=== PATIENT | male | born 1965 | race African-American/Black ===

== ENCOUNTER 2019-12-06 10:48 | Inpatient (IN) | payer OTHER ==
--- NOTE | 2019-12-06 13:45 | BHS.RME ---
Substance Use & Tx History - Substance Use History Alcohol Substance amount: 2 of 6 packs of 12 0zs of beer Frequency of use: Daily Substance route: Oral Date of Last Use: 12/06/19 - Last Treatment Date of last treatment: 10/04/2014 to 11/01/14 Where was last treatment: Rehab Physical/Psych/Mental Status - Behavior Eye Contact: Normal - Cooperativeness Cooperativeness: Cooperative - Thinking Thought Processes: Logical Thought content: Future oriented - Physical Health Problems Is patient presently having any pain?: No Does patient presently have any injuries (include location): No Does patient currently have a fever: No CIWA Nausea/Vomitin Muscle Tremors: 3 Anxiety: 3 Agitation: 3 Paroxysmal Sweats: 1-Minimal Palms Moist Orientation: 0-Oriented Tacttile Disturbances: 1-Very Mild Itch/Numbness Auditory Disturbances: 0-None Visual Disturbances: 0-None Headache: 2-Mild CIWA-Ar Total Score: 15
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
[2019-12-06] MEDS ORDERED: ACETAMINOPHEN 325 MG TABLET (FP) PO PRN ×2 (14:18)
[2019-12-06] MEDS ORDERED: BISMUTH SUBSALICYLATE 524 MG/30 ML UD PO PRN (14:18)
[2019-12-06] MEDS ORDERED: ONDANSETRON *ODT* 4 MG TABLET SL ONE (14:18)
[2019-12-06] MEDS ORDERED: MAGNESIUM HYDROX 2400MG/30ML ORAL SUSPENSION 30 ML CUP PO PRN (14:18)
[2019-12-06] MEDS ORDERED: IBUPROFEN 400 MG TABLET (FP) PO PRN (14:18)
[2019-12-06] MEDS ORDERED: METHOCARBAMOL 500 MG TABLET PO PRN (14:18)
[2019-12-06] MEDS ORDERED: MENTHOL/PHENOL 1 EACH UD MM PRN (14:18)
[2019-12-06] MEDS ORDERED: MAG HYDROX/AL HYDROX/SIMETH 30 ML UNIT-DOSE CUP PO PRN (14:18)
[2019-12-06] MEDS ORDERED: chlordiazePOXIDE HCL 25 MG CAPSULE PO PRN (14:18)
[2019-12-06] MEDS ORDERED: MAGNESIUM CITRATE 300 ML BOTTLE PO PRN (14:18)
[2019-12-06 15:48] VITALS: BMI 21.4
[2019-12-06] MEDS ORDERED: TUBERCULIN PPD 5 TU/0.1ML VIAL ID ONE (16:58)
[2019-12-06] MEDS: hydrOXYzine PAMOATE 25 MG CAPSULE (FP) PO SCH ×2 (17:00→22:32)
[2019-12-06] MEDS: chlordiazePOXIDE HCL 25 MG CAPSULE PO SCH ×2 (17:00→22:31)
[2019-12-06] MEDS: THIAMINE HCL 100 MG TABLET (FP) PO SCH (22:31)
[2019-12-06] MEDS: MELATONIN 5 MG TABLETS PO SCH (22:31)
[2019-12-07] MEDS: chlordiazePOXIDE HCL 25 MG CAPSULE PO SCH ×4 (06:40→22:34)
[2019-12-07] MEDS: hydrOXYzine PAMOATE 25 MG CAPSULE (FP) PO SCH ×5 (06:40→22:34)
--- NOTE | 2019-12-07 10:27 | EKG ---
Test Reason : Blood Pressure : / mmHG Vent. Rate : 072 BPM Atrial Rate : 072 BPM P-R Int : 150 ms QRS Dur : 088 ms QT Int : 424 ms P-R-T Axes : 065 -39 062 degrees QTc Int : 464 ms UNDETERMINED RHYTHM LEFT AXIS DEVIATION ABNORMAL ECG NO PREVIOUS ECGS AVAILABLE Confirmed by Lo Brewster ([id number]) on 12/07/2019 10:26:53 AM Referred By: Confirmed By:Lo Brewster
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
[2019-12-07] MEDS: PRENATAL VITAMINS W/ FOLIC ACID TABLET (FP) PO SCH (10:53)
[2019-12-07 11:07] LABS: HEMATOCRIT 30.8 % (35.4-49); HEMOGLOBIN 9.9 GM/dL (11.7-16.9); MCH 26.9 pg (25.7-33.7); MCHC 32.2 g/dl (32.0-35.9); MEAN CELL VOLUME 83.6 fl (80-96); MEAN PLT VOLUME 8.5 fl (7.5-11.1); PLATELET COUNT 242 K/MM3 (134-434); RBC 3.69 M/mm3 (4.00-5.60); RDW 21.1 % (11.9-15.9); WHITE BLOOD COUNT 2.8 K/mm3 (4.0-10.0)
[2019-12-07 11:15] LABS: ALBUMIN 3.5 g/dl (3.4-5.0); BILIRUBIN,TOTAL 0.4 mg/dL (0.2-1); BLOOD UREA NITROGEN 8.8 mg/dL (7-18); CALCIUM 8.7 mg/dL (8.5-10.1); CREATININE 1.1 mg/dL (0.55-1.3); POTASSIUM 4.4 mmol/L (3.5-5.1)
--- NOTE | 2019-12-07 12:03 | PN ---
[facility] CIWA - CIWA Score Nausea/Vomitin-No Nausea/No Vomiting (Diarrhea) Muscle Tremors: 4-Moderate,w/Arms Extend Anxiety: 4-Mod. Anxious/Guarded Agitation: 3 Paroxysmal Sweats: No Perspiration Orientation: 0-Oriented Tacttile Disturbances: 0-None Auditory Disturbances: 0-None Visual Disturbances: 0-None Headache: 0-None Present CIWA-Ar Total Score: 11 BHS Progress Note (SOAP) Subjective: Pt is a 54 y/o male admitted to detox for withdrawal sx. c/o Diarrhea x 3 this morning chills sweats tremors intermittent sleep Objective: 12/07/19 12:02 Vital Signs - 24 hr 12/06/19 12/06/19 12/06/19 15:44 16:55 21:07 Temperature 97.3 F L 97.5 F L 98.7 F Pulse Rate 85 79 88 Respiratory 20 18 16 Rate Blood Pressure 108/64 128/81 138/86 O2 Sat by Pulse 96 95 Oximetry (%) 12/07/19 06:56 Temperature 98.3 F Pulse Rate 886 H Respiratory 16 Rate Blood Pressure 129/78 O2 Sat by Pulse 95 Oximetry (%) Laboratory Tests 12/07/19 12/07/19 12/07/19 08:05 08:05 08:05 WBC 2.8 L RBC 3.69 L Hgb 9.9 L Hct 30.8 L D MCV 83.6 MCH 26.9 D MCHC 32.2 RDW 21.1 H Plt Count 242 MPV 8.5 D Sodium 143 Potassium 4.4 Chloride 108 H Carbon Dioxide 30 Anion Gap 5 L BUN 8.8 Creatinine 1.1 Est GFR (CKD-EPI)AfAm 87.74 Est GFR (CKD-EPI)NonAf 75.70 Random Glucose 132 H Calcium 8.7 Total Bilirubin 0.4 AST 81 H ALT 37 Alkaline Phosphatase 165 H Total Protein 8.0 Albumin 3.5 Syphilis Serology Non-reactive Low H/H 9.9/30.8 covid-19 pending alert o x 3 nad pt seen in bed at rounds, communicated needs coherently. Assessment: 12/07/19 12:02 withdrawal sx Anemia Plan: cont detox increase po fluids as tolerated maintain safety imodium prn Diet management if imodium not effective. Feosol 325 mg po TIDCM
[2019-12-07] MEDS: FERROUS SO4 325 MG TABLET (FP) PO SCH (17:45)
[2019-12-07 21:12] LABS: URINE APPEARANCE CLEAR; URINE BILIRUBIN NEGATIVE (NEGATIVE); URINE COLOR YELLOW; URINE GLUCOSE (UA) NEGATIVE (NEGATIVE); URINE KETONE NEGATIVE (NEGATIVE); URINE LEUK ESTERASE NEGATIVE (NEGATIVE); URINE NITRITE NEGATIVE (NEGATIVE); URINE PROTEIN NEGATIVE (NEGATIVE); URINE UROBILINOGEN 0.2 mg/dL (0.2-1.0)
[2019-12-07] MEDS: THIAMINE HCL 100 MG TABLET (FP) PO SCH (22:34)
[2019-12-07] MEDS: MELATONIN 5 MG TABLETS PO SCH (22:34)
[2019-12-07] MEDS: QUEtiapine FUMARATE 100 MG TABLET (FP) PO SCH (22:35)
[2019-12-08] MEDS: hydrOXYzine PAMOATE 25 MG CAPSULE (FP) PO SCH ×5 (06:16→22:10)
[2019-12-08] MEDS: chlordiazePOXIDE HCL 25 MG CAPSULE PO SCH ×4 (06:16→22:10)
[2019-12-08] MEDS: FERROUS SO4 325 MG TABLET (FP) PO SCH ×3 (07:22→17:44)
[2019-12-08] MEDS: PRENATAL VITAMINS W/ FOLIC ACID TABLET (FP) PO SCH (11:10)
--- NOTE | 2019-12-08 13:19 | PN ---
S CIWA - CIWA Score Nausea/Vomitin-No Nausea/No Vomiting Muscle Tremors: 3 Anxiety: 5 Agitation: 0-Normal Activity Paroxysmal Sweats: 2 Orientation: 0-Oriented Tacttile Disturbances: 0-None Auditory Disturbances: 0-None Visual Disturbances: 0-None Headache: 0-None Present CIWA-Ar Total Score: 10 BHS Progress Note (SOAP) Subjective: pt c/o anxiety cold sweats tremors Objective: 12/08/19 13:16 Vital Signs - 24 hr 12/07/19 12/07/19 12/07/19 13:18 17:02 20:55 Temperature 97.8 F 97.7 F 97.7 F Pulse Rate 72 67 65 Respiratory 16 16 16 Rate Blood Pressure 121/74 135/75 162/86 O2 Sat by Pulse 96 98 Oximetry (%) 12/08/19 05:51 Temperature 97.5 F L Pulse Rate 56 L Respiratory 16 Rate Blood Pressure 144/92 O2 Sat by Pulse 98 Oximetry (%) Laboratory Tests 12/06/19 12/07/19 12/07/19 16:00 08:05 08:05 WBC 2.8 L RBC 3.69 L Hgb 9.9 L Hct 30.8 L D MCV 83.6 MCH 26.9 D MCHC 32.2 RDW 21.1 H Plt Count 242 MPV 8.5 D Sodium Potassium Chloride Carbon Dioxide Anion Gap BUN Creatinine Est GFR (CKD-EPI)AfAm Est GFR (CKD-EPI)NonAf Random Glucose Calcium Total Bilirubin AST ALT Alkaline Phosphatase Total Protein Albumin Urine Color Urine Appearance Urine pH Ur Specific [place] Urine Protein Urine Glucose (UA) Urine Ketones Urine Blood Urine Nitrite Urine Bilirubin Urine Urobilinogen Ur Leukocyte Esterase Syphilis Serology Non-reactive COVID-19 (CAM) Not detected 12/07/19 12/07/19 08:05 19:02 WBC RBC Hgb Hct MCV MCH MCHC RDW Plt Count MPV Sodium 143 Potassium 4.4 Chloride 108 H Carbon Dioxide 30 Anion Gap 5 L BUN 8.8 Creatinine 1.1 Est GFR (CKD-EPI)AfAm 87.74 Est GFR (CKD-EPI)NonAf 75.70 Random Glucose 132 H Calcium 8.7 Total Bilirubin 0.4 AST 81 H ALT 37 Alkaline Phosphatase 165 H Total Protein 8.0 Albumin 3.5 Urine Color Yellow Urine Appearance Clear Urine pH 7.0 D Ur Specific [place] 1.005 L Urine Protein Negative Urine Glucose (UA) Negative Urine Ketones Negative Urine Blood Negative Urine Nitrite Negative Urine Bilirubin Negative Urine Urobilinogen 0.2 Ur Leukocyte Esterase Negative Syphilis Serology COVID-19 (CAM) covid-19 not detected alert o x 3 nad oob ambulating with steady gait Assessment: 12/08/19 13:19 withdrawal sx Plan: cont detox increase po fluids maintain safety repeat CBC and CMP in the morning.
[2019-12-08] MEDS: THIAMINE HCL 100 MG TABLET (FP) PO SCH (22:10)
[2019-12-08] MEDS: MELATONIN 5 MG TABLETS PO SCH (22:10)
[2019-12-08] MEDS: QUEtiapine FUMARATE 100 MG TABLET (FP) PO SCH (22:10)
[2019-12-09] MEDS ORDERED: chlordiazePOXIDE HCL 10 MG CAPSULE PO PRN
[2019-12-09] MEDS: chlordiazePOXIDE HCL 10 MG CAPSULE PO SCH ×4 (06:58→22:31)
[2019-12-09] MEDS: hydrOXYzine PAMOATE 25 MG CAPSULE (FP) PO SCH ×5 (06:58→22:31)
[2019-12-09] MEDS: FERROUS SO4 325 MG TABLET (FP) PO SCH ×3 (09:00→17:45)
[2019-12-09] MEDS: PRENATAL VITAMINS W/ FOLIC ACID TABLET (FP) PO SCH (10:03)
[2019-12-09 12:00] LABS: ALBUMIN 3.7 g/dl (3.4-5.0); BLOOD UREA NITROGEN 9.7 mg/dL (7-18); CALCIUM 9.9 mg/dL (8.5-10.1); POTASSIUM 4.1 mmol/L (3.5-5.1); TOT PROT 8.4 g/dl (6.4-8.2)
[2019-12-09 12:02] LABS: BILIRUBIN,TOTAL 0.3 mg/dL (0.2-1)
[2019-12-09 12:28] LABS: HEMATOCRIT 32.3 % (35.4-49); HEMOGLOBIN 10.4 GM/dL (11.7-16.9); MCH 27.1 pg (25.7-33.7); MCHC 32.2 g/dl (32.0-35.9); MEAN CELL VOLUME 84.1 fl (80-96); PLATELET COUNT 214 K/MM3 (134-434); RBC 3.85 M/mm3 (4.00-5.60); RDW 20.4 % (11.9-15.9); WHITE BLOOD COUNT 3.6 K/mm3 (4.0-10.0)
--- NOTE | 2019-12-09 14:40 | PN ---
S CIWA - CIWA Score Nausea/Vomitin-No Nausea/No Vomiting Muscle Tremors: 4-Moderate,w/Arms Extend Anxiety: 3 Agitation: 2 Paroxysmal Sweats: No Perspiration Orientation: 0-Oriented Tacttile Disturbances: 0-None Auditory Disturbances: 0-None Visual Disturbances: 0-None Headache: 0-None Present CIWA-Ar Total Score: 9 BHS Progress Note (SOAP) Subjective: Pt reports he has an appointment with his primary care doctor, Dr. Nurys rodriguez(?spelling) at [facility] on 12/11/19 @ 11 A.M. pt c/o anxiety slight tremors "my bones hurt" Objective: 12/09/19 14:41 Vital Signs - 24 hr 12/08/19 12/08/19 12/09/19 18:46 20:35 06:01 Temperature 98.2 F 98.4 F 97.5 F L Pulse Rate 68 59 L 49 L Respiratory 18 18 18 Rate Blood Pressure 153/91 151/88 139/87 O2 Sat by Pulse 96 97 Oximetry (%) Laboratory Tests 12/06/19 12/07/19 12/07/19 16:00 08:05 08:05 WBC 2.8 L RBC 3.69 L Hgb 9.9 L Hct 30.8 L D MCV 83.6 MCH 26.9 D MCHC 32.2 RDW 21.1 H Plt Count 242 MPV 8.5 D Sodium Potassium Chloride Carbon Dioxide Anion Gap BUN Creatinine Est GFR (CKD-EPI)AfAm Est GFR (CKD-EPI)NonAf Random Glucose Calcium Total Bilirubin AST ALT Alkaline Phosphatase Total Protein Albumin Urine Color Urine Appearance Urine pH Ur Specific [place] Urine Protein Urine Glucose (UA) Urine Ketones Urine Blood Urine Nitrite Urine Bilirubin Urine Urobilinogen Ur Leukocyte Esterase Syphilis Serology Non-reactive COVID-19 (CAM) Not detected 12/07/19 12/07/19 12/09/19 08:05 19:02 08:00 WBC 3.6 L RBC 3.85 L Hgb 10.4 L Hct 32.3 L MCV 84.1 MCH 27.1 MCHC 32.2 RDW 20.4 H Plt Count 214 MPV 9.0 Sodium 143 Potassium 4.4 Chloride 108 H Carbon Dioxide 30 Anion Gap 5 L BUN 8.8 Creatinine 1.1 Est GFR (CKD-EPI)AfAm 87.74 Est GFR (CKD-EPI)NonAf 75.70 Random Glucose 132 H Calcium 8.7 Total Bilirubin 0.4 AST 81 H ALT 37 Alkaline Phosphatase 165 H Total Protein 8.0 Albumin 3.5 Urine Color Yellow Urine Appearance Clear Urine pH 7.0 D Ur Specific [place] 1.005 L Urine Protein Negative Urine Glucose (UA) Negative Urine Ketones Negative Urine Blood Negative Urine Nitrite Negative Urine Bilirubin Negative Urine Urobilinogen 0.2 Ur Leukocyte Esterase Negative Syphilis Serology COVID-19 (CAM) 12/09/19 08:00 WBC RBC Hgb Hct MCV MCH MCHC RDW Plt Count MPV Sodium 140 Potassium 4.1 Chloride 107 Carbon Dioxide 28 Anion Gap 5 L BUN 9.7 Creatinine 1.0 Est GFR (CKD-EPI)AfAm 98.46 Est GFR (CKD-EPI)NonAf 84.95 Random Glucose 92 Calcium 9.9 Total Bilirubin 0.3 AST 82 H ALT 40 Alkaline Phosphatase 154 H Total Protein 8.4 H Albumin 3.7 Urine Color Urine Appearance Urine pH Ur Specific [place] Urine Protein Urine Glucose (UA) Urine Ketones Urine Blood Urine Nitrite Urine Bilirubin Urine Urobilinogen Ur Leukocyte Esterase Syphilis Serology COVID-19 (CAM) repeat labs slightly improved alert o x 3 nad sitting on his bed during rounds and communicated coherently. Assessment: 12/09/19 14:42 withdrawal sx Plan: cont detox increase po fluids maintain safety Follow up with primary care at [facility], [address] [place] [address] as scheduled.
[2019-12-09] MEDS: amLODIPine BESYLATE 5 MG TABLET (FP) PO SCH (15:44)
[2019-12-09] MEDS: MELATONIN 5 MG TABLETS PO SCH (22:31)
[2019-12-09] MEDS: THIAMINE HCL 100 MG TABLET (FP) PO SCH (22:31)
[2019-12-09] MEDS: QUEtiapine FUMARATE 100 MG TABLET (FP) PO SCH (22:31)
[2019-12-10] MEDS: chlordiazePOXIDE HCL 10 MG CAPSULE PO SCH ×2 (06:47→17:58)
[2019-12-10] MEDS: hydrOXYzine PAMOATE 25 MG CAPSULE (FP) PO SCH ×5 (06:47→21:44)
[2019-12-10] MEDS: FERROUS SO4 325 MG TABLET (FP) PO SCH ×3 (07:29→17:58)
[2019-12-10] MEDS: amLODIPine BESYLATE 5 MG TABLET (FP) PO SCH (10:53)
[2019-12-10] MEDS: PRENATAL VITAMINS W/ FOLIC ACID TABLET (FP) PO SCH (10:53)
--- NOTE | 2019-12-10 17:21 | PN ---
S CIWA - CIWA Score Nausea/Vomitin-No Nausea/No Vomiting Muscle Tremors: 2 Anxiety: 3 Agitation: 0-Normal Activity Paroxysmal Sweats: No Perspiration Orientation: 0-Oriented Tacttile Disturbances: 0-None Auditory Disturbances: 0-None Visual Disturbances: 0-None Headache: 0-None Present CIWA-Ar Total Score: 5 BHS Progress Note (SOAP) Subjective: c/o slight anxiety sweats Objective: 12/10/19 17:19 Vital Signs - 24 hr 12/09/19 12/09/19 12/10/19 20:14 23:19 06:11 Temperature 98.0 F 98.0 F Pulse Rate 60 63 94 H Respiratory 16 18 Rate Blood Pressure 151/83 128/83 115/67 O2 Sat by Pulse 97 97 Oximetry (%) Laboratory Tests 12/06/19 12/07/19 12/07/19 16:00 08:05 08:05 WBC 2.8 L RBC 3.69 L Hgb 9.9 L Hct 30.8 L D MCV 83.6 MCH 26.9 D MCHC 32.2 RDW 21.1 H Plt Count 242 MPV 8.5 D Sodium Potassium Chloride Carbon Dioxide Anion Gap BUN Creatinine Est GFR (CKD-EPI)AfAm Est GFR (CKD-EPI)NonAf Random Glucose Calcium Total Bilirubin AST ALT Alkaline Phosphatase Total Protein Albumin Urine Color Urine Appearance Urine pH Ur Specific [place] Urine Protein Urine Glucose (UA) Urine Ketones Urine Blood Urine Nitrite Urine Bilirubin Urine Urobilinogen Ur Leukocyte Esterase Syphilis Serology Non-reactive COVID-19 (CAM) Not detected 12/07/19 12/07/19 12/09/19 08:05 19:02 08:00 WBC 3.6 L RBC 3.85 L Hgb 10.4 L Hct 32.3 L MCV 84.1 MCH 27.1 MCHC 32.2 RDW 20.4 H Plt Count 214 MPV 9.0 Sodium 143 Potassium 4.4 Chloride 108 H Carbon Dioxide 30 Anion Gap 5 L BUN 8.8 Creatinine 1.1 Est GFR (CKD-EPI)AfAm 87.74 Est GFR (CKD-EPI)NonAf 75.70 Random Glucose 132 H Calcium 8.7 Total Bilirubin 0.4 AST 81 H ALT 37 Alkaline Phosphatase 165 H Total Protein 8.0 Albumin 3.5 Urine Color Yellow Urine Appearance Clear Urine pH 7.0 D Ur Specific [place] 1.005 L Urine Protein Negative Urine Glucose (UA) Negative Urine Ketones Negative Urine Blood Negative Urine Nitrite Negative Urine Bilirubin Negative Urine Urobilinogen 0.2 Ur Leukocyte Esterase Negative Syphilis Serology COVID-19 (CAM) 12/09/19 08:00 WBC RBC Hgb Hct MCV MCH MCHC RDW Plt Count MPV Sodium 140 Potassium 4.1 Chloride 107 Carbon Dioxide 28 Anion Gap 5 L BUN 9.7 Creatinine 1.0 Est GFR (CKD-EPI)AfAm 98.46 Est GFR (CKD-EPI)NonAf 84.95 Random Glucose 92 Calcium 9.9 Total Bilirubin 0.3 AST 82 H ALT 40 Alkaline Phosphatase 154 H Total Protein 8.4 H Albumin 3.7 Urine Color Urine Appearance Urine pH Ur Specific [place] Urine Protein Urine Glucose (UA) Urine Ketones Urine Blood Urine Nitrite Urine Bilirubin Urine Urobilinogen Ur Leukocyte Esterase Syphilis Serology COVID-19 (CAM) alert o x 3 nad oob ambulating with steady gait Assessment: 12/10/19 17:20 mild withdrawal sx Plan: cont detox d/c pt in A.M if medically stable follow up with primary care provider at [facility], [place], [place] for medical Management.
[2019-12-10] MEDS: QUEtiapine FUMARATE 100 MG TABLET (FP) PO SCH (21:44)
[2019-12-10] MEDS: THIAMINE HCL 100 MG TABLET (FP) PO SCH (21:45)
[2019-12-10] MEDS: MELATONIN 5 MG TABLETS PO SCH (21:45)
[2019-12-11] MEDS ORDERED: chlordiazePOXIDE HCL 10 MG CAPSULE PO ONE (05:00)
[2019-12-11] MEDS: hydrOXYzine PAMOATE 25 MG CAPSULE (FP) PO SCH ×2 (06:14→09:15)
[2019-12-11 06:30] VITALS: TEMP 97.3
--- NOTE | 2019-12-11 08:26 | DS ---
[facility] Detox Discharge Summary Admission Date: 12/06/19 Discharge Date: 12/11/19 - History Present History: Alcohol Dependence Additional Comments: Pt completed detox and discharged today. Pt will follow up with aftercare at [facility]. Pt reports he has primary care with [facility] and is going there today. Has appointment at 11:00 a.m today. Pertinent Past History: GERD HTN Low Back Pain - Physical Exam Results Vital Signs: Vital Signs Temperature 97.3 F L 12/11/19 06:00 Pulse Rate 85 12/11/19 06:00 Respiratory Rate 16 12/11/19 06:00 Blood Pressure 133/85 12/11/19 06:00 O2 Sat by Pulse Oximetry (%) 94 L 12/11/19 06:00 alert o x 3 nad oob ambulating with steady gait cardiac:s1 s2,rrr lungs:ctab abdomen:+bs,soft,nt,nd extremities:no edema,skin intact Pertinent Admission Physical Exam Findings: Laboratory Tests 12/06/19 12/07/19 12/07/19 16:00 08:05 08:05 WBC 2.8 L RBC 3.69 L Hgb 9.9 L Hct 30.8 L D MCV 83.6 MCH 26.9 D MCHC 32.2 RDW 21.1 H Plt Count 242 MPV 8.5 D Sodium Potassium Chloride Carbon Dioxide Anion Gap BUN Creatinine Est GFR (CKD-EPI)AfAm Est GFR (CKD-EPI)NonAf Random Glucose Calcium Total Bilirubin AST ALT Alkaline Phosphatase Total Protein Albumin Urine Color Urine Appearance Urine pH Ur Specific [place] Urine Protein Urine Glucose (UA) Urine Ketones Urine Blood Urine Nitrite Urine Bilirubin Urine Urobilinogen Ur Leukocyte Esterase Syphilis Serology Non-reactive COVID-19 (CAM) Not detected 12/07/19 12/07/19 12/09/19 08:05 19:02 08:00 WBC 3.6 L RBC 3.85 L Hgb 10.4 L Hct 32.3 L MCV 84.1 MCH 27.1 MCHC 32.2 RDW 20.4 H Plt Count 214 MPV 9.0 Sodium 143 Potassium 4.4 Chloride 108 H Carbon Dioxide 30 Anion Gap 5 L BUN 8.8 Creatinine 1.1 Est GFR (CKD-EPI)AfAm 87.74 Est GFR (CKD-EPI)NonAf 75.70 Random Glucose 132 H Calcium 8.7 Total Bilirubin 0.4 AST 81 H ALT 37 Alkaline Phosphatase 165 H Total Protein 8.0 Albumin 3.5 Urine Color Yellow Urine Appearance Clear Urine pH 7.0 D Ur Specific [place] 1.005 L Urine Protein Negative Urine Glucose (UA) Negative Urine Ketones Negative Urine Blood Negative Urine Nitrite Negative Urine Bilirubin Negative Urine Urobilinogen 0.2 Ur Leukocyte Esterase Negative Syphilis Serology COVID-19 (CAM) 12/09/19 08:00 WBC RBC Hgb Hct MCV MCH MCHC RDW Plt Count MPV Sodium 140 Potassium 4.1 Chloride 107 Carbon Dioxide 28 Anion Gap 5 L BUN 9.7 Creatinine 1.0 Est GFR (CKD-EPI)AfAm 98.46 Est GFR (CKD-EPI)NonAf 84.95 Random Glucose 92 Calcium 9.9 Total Bilirubin 0.3 AST 82 H ALT 40 Alkaline Phosphatase 154 H Total Protein 8.4 H Albumin 3.7 Urine Color Urine Appearance Urine pH Ur Specific [place] Urine Protein Urine Glucose (UA) Urine Ketones Urine Blood Urine Nitrite Urine Bilirubin Urine Urobilinogen Ur Leukocyte Esterase Syphilis Serology COVID-19 (CAM) - Treatment Hospital Course: Detox Protocol Followed, Detoxed Safely, Responded well, Discharged Condition Good, Rehab Referral Accepted Patient has Accepted a Rehab Referral to: [facility] - Medication Discharge Medications: Ambulatory Orders Amlodipine Besylate 5 mg PO DAILY #14 tablet 12/10/19 Ferrous Sulfate [Feosol] 325 mg PO DAILY #30 ud 12/10/19 Quetiapine Fumarate [Seroquel -] 100 mg PO HS #30 tablet 12/11/19 - Diagnosis (1) Low back pain Status: Acute Qualifiers: Chronicity: unspecified (2) Hypercholesterolemia Status: Chronic (3) HTN (hypertension) Status: Chronic Qualifiers: Hypertension type: essential hypertension Qualified Code(s): I10 - Esse ntial (primary) hypertension (4) GERD (gastroesophageal reflux disease) Status: Chronic Qualifiers: Esophagitis presence: esophagitis presence not specified Qualified Code(s): K21.9 - Gastro-esophageal reflux disease without esophagitis (5) Alcohol dependence with uncomplicated withdrawal Status: Acute (6) Frequent falls Status: Chronic (7) History of head injury Status: Resolved (8) CVA, old, facial weakness Status: Resolved - AMA Did Patient Leave Against Medical Advice: No
[2019-12-11] MEDS: FERROUS SO4 325 MG TABLET (FP) PO SCH (08:50)
[2019-12-11] MEDS: amLODIPine BESYLATE 5 MG TABLET (FP) PO SCH (09:15)
[2019-12-11] MEDS: PRENATAL VITAMINS W/ FOLIC ACID TABLET (FP) PO SCH (09:15)
[2019-12-11 09:50] VITALS: BP 117/77; PULSE 81
--- NOTE | 2019-12-11 10:05 | PN ---
S Progress Note Note: Patient is scheduled for discharge today. Scripts for 30 days supply of Seroquel 100 mhg/hs is electronically transmitted to [facility], [address] [place] [id number]
== END 2019-12-11 10:08 | disposition home or self-care (01) | DRG 775 ==
LOC: YASAS 10:48 → Y5N DETOX 15:59
PROVIDERS: ADMIT Allergy & Immunology; ATTEND Allergy & Immunology
PROC: HZ2ZZZZ Detoxification Services for Substance Abuse Treatment (ICD-10-PCS; principal; 2019-12-06)
DX: F10.230 Alcohol dependence with withdrawal, uncomplicated (principal); F10.220 Alcohol dependence with intoxication, uncomplicated; F10.282 Alcohol dependence with alcohol-induced sleep disorder; I10 Essential (primary) hypertension; E78.5 Hyperlipidemia, unspecified; K21.9 Gastro-esophageal reflux disease without esophagitis; R29.6 Repeated falls; I69.392 Facial weakness following cerebral infarction; M54.5 Low back pain; D64.9 Anemia, unspecified; Z87.820 Personal history of traumatic brain injury; Z91.018 Allergy to other foods
CPT/HCPCS: 36415; 80053; 81003; 85027; 86780; 93005; 93010; U0003

== ENCOUNTER 2021-02-20 16:53 | Inpatient (IN) | payer OTHER ==
[2021-02-20] MEDS ORDERED: BISMUTH SUBSALICYLATE 524 MG/30 ML PO PRN (22:09)
[2021-02-20] MEDS ORDERED: MAGNESIUM CITRATE 300 ML BOTTLE PO PRN (22:09)
[2021-02-20] MEDS ORDERED: MAGNESIUM HYDROX 2400MG/30ML ORAL SUSPENSION 30 ML CUP PO PRN (22:09)
[2021-02-20] MEDS ORDERED: MENTHOL/PHENOL 1 EACH UD MM PRN (22:09)
[2021-02-20] MEDS ORDERED: IBUPROFEN 400 MG TABLET (FP) PO PRN (22:09)
[2021-02-20] MEDS ORDERED: METHOCARBAMOL 500 MG TABLET PO PRN (22:09)
[2021-02-20] MEDS ORDERED: ACETAMINOPHEN 325 MG TABLET (FP) PO PRN ×2 (22:09)
[2021-02-20] MEDS ORDERED: MAG HYDROX/AL HYDROX/SIMETH 30 ML UNIT-DOSE CUP PO PRN (22:09)
[2021-02-20] MEDS ORDERED: ONDANSETRON *ODT* 4 MG TABLET SL PRN (22:09)
[2021-02-20] MEDS ORDERED: diazePAM 5 MG TABLET PO PRN (22:12)
[2021-02-20 23:55] VITALS: BMI 22.6
[2021-02-21] MEDS ORDERED: diazePAM 5 MG TABLET ONE (01:15)
[2021-02-21] MEDS: diazePAM 5 MG TABLET PO SCH ×5 (01:20→22:35)
[2021-02-21] MEDS: FERROUS SO4 325 MG TABLET (FP) PO SCH (11:34)
[2021-02-21] MEDS: amLODIPine BESYLATE 5 MG TABLET (FP) PO SCH (11:35)
[2021-02-21] MEDS: PRENATAL VITAMINS W/ FOLIC ACID TABLET (FP) PO SCH (11:35)
[2021-02-21 12:45] LABS: HEMATOCRIT 34.2 % (35.4-49); HEMOGLOBIN 11.7 GM/dL (11.7-16.9); MCH 31.8 pg (25.7-33.7); MCHC 34.2 g/dl (32.0-35.9); MEAN CELL VOLUME 93.1 fl (80-96); MEAN PLT VOLUME 9.2 fl (7.5-11.1); PLATELET COUNT 129 10^3/uL (134-434); RBC 3.68 M/mm3 (4.00-5.60); RDW 14.5 % (11.9-15.9); WHITE BLOOD COUNT 3.6 K/mm3 (4.0-10.0)
[2021-02-21 12:59] LABS: ALBUMIN 3.6 g/dl (3.4-5.0); CALCIUM 8.7 mg/dL (8.5-10.1)
[2021-02-21 13:05] LABS: TOT PROT 8.6 g/dl (6.4-8.2)
[2021-02-21] MEDS: MELATONIN 5 MG TABLETS PO SCH (22:35)
[2021-02-21] MEDS: THIAMINE HCL 100 MG TABLET (FP) PO SCH (22:35)
[2021-02-21 23:18] LABS: HIV INTERPRETATION NEGATIVE (NEGATIVE)
[2021-02-22] MEDS: diazePAM 5 MG TABLET PO SCH ×3 (05:41→22:46)
[2021-02-22] MEDS: amLODIPine BESYLATE 5 MG TABLET (FP) PO SCH (10:48)
[2021-02-22] MEDS: PRENATAL VITAMINS W/ FOLIC ACID TABLET (FP) PO SCH (10:48)
[2021-02-22] MEDS: FERROUS SO4 325 MG TABLET (FP) PO SCH (10:48)
[2021-02-22] MEDS: THIAMINE HCL 100 MG TABLET (FP) PO SCH (22:47)
[2021-02-22] MEDS: MELATONIN 5 MG TABLETS PO SCH (22:47)
[2021-02-23] MEDS: diazePAM 5 MG TABLET PO SCH ×2 (04:59→18:15)
[2021-02-23] MEDS: FERROUS SO4 325 MG TABLET (FP) PO SCH (10:47)
[2021-02-23] MEDS: amLODIPine BESYLATE 5 MG TABLET (FP) PO SCH (10:47)
[2021-02-23] MEDS: PRENATAL VITAMINS W/ FOLIC ACID TABLET (FP) PO SCH (10:47)
[2021-02-23 11:10] LABS: ALBUMIN 3.6 g/dl (3.4-5.0); BLOOD UREA NITROGEN 11.9 mg/dL (7-18); CALCIUM 9.3 mg/dL (8.5-10.1)
[2021-02-23 11:15] LABS: BILIRUBIN,TOTAL 0.9 mg/dL (0.2-1); TOT PROT 8.3 g/dl (6.4-8.2)
[2021-02-23] MEDS: MELATONIN 5 MG TABLETS PO SCH (22:17)
[2021-02-23] MEDS: THIAMINE HCL 100 MG TABLET (FP) PO SCH (22:17)
[2021-02-24] MEDS ORDERED: diazePAM 5 MG TABLET PO ONE (06:00)
[2021-02-24 06:04] VITALS: TEMP 96.8
[2021-02-24 09:12] VITALS: BP 112/67; PULSE 74
[2021-02-24] MEDS: FERROUS SO4 325 MG TABLET (FP) PO SCH (10:28)
[2021-02-24] MEDS: amLODIPine BESYLATE 5 MG TABLET (FP) PO SCH (10:28)
[2021-02-24] MEDS: PRENATAL VITAMINS W/ FOLIC ACID TABLET (FP) PO SCH (10:28)
== END 2021-02-24 12:37 | disposition home or self-care (01) | DRG 775 ==
LOC: YASAS 16:53 → Y3N 02-21 01:07
PROVIDERS: ADMIT Allergy & Immunology; ATTEND Allergy & Immunology
PROC: HZ2ZZZZ Detoxification Services for Substance Abuse Treatment (ICD-10-PCS; principal; 2021-02-20)
DX: F10.230 Alcohol dependence with withdrawal, uncomplicated (principal); F10.280 Alcohol dependence with alcohol-induced anxiety disorder; F31.9 Bipolar disorder, unspecified; F41.9 Anxiety disorder, unspecified; I10 Essential (primary) hypertension; D64.9 Anemia, unspecified; M54.50 Low back pain, unspecified; G89.29 Other chronic pain; J30.2 Other seasonal allergic rhinitis; Z91.018 Allergy to other foods; Z86.73 Personal history of transient ischemic attack (TIA), and cerebral infarction without residual deficits; Z91.81 History of falling; Z87.820 Personal history of traumatic brain injury; Z56.0 Unemployment, unspecified; Z59.00 Homelessness unspecified
CPT/HCPCS: 36415; 80053; 85027; 86780; 87389; C9803; U0003; U0005

== ENCOUNTER 2021-07-01 13:15 | Inpatient (IN) | payer OTHER ==
[2021-07-01 15:19] VITALS: BMI 23.6
[2021-07-01] MEDS ORDERED: MENTHOL/PHENOL 1 EACH UD MM PRN (20:50)
[2021-07-01] MEDS ORDERED: MAG HYDROX/AL HYDROX/SIMETH 30 ML UNIT-DOSE CUP PO PRN (20:50)
[2021-07-01] MEDS ORDERED: MAGNESIUM HYDROX 2400MG/30ML ORAL SUSPENSION 30 ML CUP PO PRN (20:50)
[2021-07-01] MEDS ORDERED: ACETAMINOPHEN 325 MG TABLET (FP) PO PRN ×2 (20:50)
[2021-07-01] MEDS ORDERED: MAGNESIUM CITRATE 300 ML BOTTLE PO PRN (20:50)
[2021-07-01] MEDS ORDERED: NICOTINE 10 MG CARTRIDGE (INHALER) IH PRN (20:50)
[2021-07-01] MEDS ORDERED: chlordiazePOXIDE HCL 25 MG CAPSULE PO PRN (20:50)
[2021-07-01] MEDS ORDERED: LOPERAMIDE HCL 2 MG CAPSULE PO PRN (20:50)
[2021-07-01] MEDS ORDERED: IBUPROFEN 400 MG TABLET (FP) PO PRN (20:50)
[2021-07-01] MEDS ORDERED: BISMUTH SUBSALICYLATE 524 MG/30 ML PO PRN (20:50)
[2021-07-01] MEDS ORDERED: ONDANSETRON *ODT* 4 MG TABLET SL PRN (20:50)
[2021-07-01] MEDS ORDERED: METHOCARBAMOL 500 MG TABLET PO PRN (20:50)
[2021-07-01] MEDS ORDERED: chlordiazePOXIDE HCL 25 MG CAPSULE PO ONE (20:55)
[2021-07-01] MEDS ORDERED: AZITHROMYCIN 1% OPHTH SOLN 1 BOTTLE OS SCH (22:00)
[2021-07-01] MEDS: chlordiazePOXIDE HCL 25 MG CAPSULE PO SCH (22:36)
[2021-07-01] MEDS: THIAMINE HCL 100 MG TABLET (FP) PO SCH (22:37)
[2021-07-01] MEDS: MELATONIN 5 MG TABLETS PO SCH (22:39)
[2021-07-01] MEDS: POLYMYXIN B SULFATE/TMP 10 ML OPHTHALMIC SOLUTION OS SCH (23:45)
[2021-07-02] MEDS: chlordiazePOXIDE HCL 25 MG CAPSULE PO SCH ×2 (06:07→10:55)
[2021-07-02] MEDS: POLYMYXIN B SULFATE/TMP 10 ML OPHTHALMIC SOLUTION OS SCH ×4 (10:01→22:50)
[2021-07-02] MEDS: FERROUS SO4 325 MG TABLET (FP) PO SCH (10:55)
[2021-07-02] MEDS: PRENATAL VITAMINS W/ FOLIC ACID TABLET (FP) PO SCH (10:56)
[2021-07-02 12:39] LABS: HEMATOCRIT 35.5 % (35.4-49); HEMOGLOBIN 11.5 GM/dL (11.7-16.9); MCHC 32.2 g/dl (32.0-35.9); MEAN CELL VOLUME 90.1 fl (80-96); MEAN PLT VOLUME 8.9 fl (7.5-11.1); PLATELET COUNT 145 10^3/uL (134-434); RBC 3.94 M/mm3 (4.00-5.60); RDW 15.1 % (11.9-15.9); WHITE BLOOD COUNT 3.4 K/mm3 (4.0-10.0)
[2021-07-02 14:04] LABS: ALBUMIN 3.7 g/dl (3.4-5.0); BLOOD UREA NITROGEN 13.9 mg/dL (7-18); CALCIUM 8.9 mg/dL (8.5-10.1)
[2021-07-02 14:07] LABS: CREATININE 1.2 mg/dL (0.55-1.3)
[2021-07-02 14:09] LABS: BILIRUBIN,TOTAL 0.8 mg/dL (0.2-1); TOT PROT 8.2 g/dl (6.4-8.2)
[2021-07-02] MEDS ORDERED: LORazepam 0.5 MG TABLET PO PRN (15:59)
[2021-07-02] MEDS: LORazepam 1 MG TABLET PO SCH ×2 (18:42→22:49)
[2021-07-02] MEDS: MELATONIN 5 MG TABLETS PO SCH (22:49)
[2021-07-02] MEDS: THIAMINE HCL 100 MG TABLET (FP) PO SCH (22:50)
[2021-07-03] MEDS ORDERED: chlordiazePOXIDE HCL 25 MG CAPSULE PO SCH (05:00)
[2021-07-03] MEDS: LORazepam 0.5 MG TABLET PO SCH ×4 (06:40→22:11)
[2021-07-03] MEDS: FERROUS SO4 325 MG TABLET (FP) PO SCH (10:28)
[2021-07-03] MEDS: POLYMYXIN B SULFATE/TMP 10 ML OPHTHALMIC SOLUTION OS SCH ×4 (10:29→22:11)
[2021-07-03] MEDS: PRENATAL VITAMINS W/ FOLIC ACID TABLET (FP) PO SCH (10:29)
[2021-07-03 16:07] LABS: SARS-CoV-2 NAA Not Detected (Not Detected)
[2021-07-03] MEDS: THIAMINE HCL 100 MG TABLET (FP) PO SCH (22:10)
[2021-07-03] MEDS: MELATONIN 5 MG TABLETS PO SCH (22:11)
[2021-07-04] MEDS ORDERED: chlordiazePOXIDE HCL 10 MG CAPSULE PO PRN
[2021-07-04] MEDS ORDERED: LORazepam 0.5 MG TABLET PO PRN (00:01)
[2021-07-04 00:09] LABS: SARS-CoV-2 NAA Not Detected (Not Detected)
[2021-07-04] MEDS ORDERED: chlordiazePOXIDE HCL 10 MG CAPSULE PO SCH (05:00)
[2021-07-04] MEDS: LORazepam 0.5 MG TABLET PO SCH ×3 (05:38→22:15)
[2021-07-04] MEDS: PRENATAL VITAMINS W/ FOLIC ACID TABLET (FP) PO SCH (10:17)
[2021-07-04] MEDS: POLYMYXIN B SULFATE/TMP 10 ML OPHTHALMIC SOLUTION OS SCH ×4 (10:17→22:14)
[2021-07-04] MEDS: FERROUS SO4 325 MG TABLET (FP) PO SCH (10:17)
[2021-07-04] MEDS: hydrOXYzine PAMOATE 25 MG CAPSULE (FP) PO PRN ×4 (10:17→22:15)
[2021-07-04] MEDS: MELATONIN 5 MG TABLETS PO SCH (22:15)
[2021-07-04] MEDS: THIAMINE HCL 100 MG TABLET (FP) PO SCH (22:15)
[2021-07-05] MEDS ORDERED: chlordiazePOXIDE HCL 10 MG CAPSULE PO SCH (05:00)
[2021-07-05] MEDS: LORazepam 0.5 MG TABLET PO SCH ×2 (06:00→18:21)
[2021-07-05] MEDS: POLYMYXIN B SULFATE/TMP 10 ML OPHTHALMIC SOLUTION OS SCH ×4 (10:07→22:41)
[2021-07-05] MEDS: PRENATAL VITAMINS W/ FOLIC ACID TABLET (FP) PO SCH (10:07)
[2021-07-05] MEDS: FERROUS SO4 325 MG TABLET (FP) PO SCH (10:07)
[2021-07-05] MEDS: THIAMINE HCL 100 MG TABLET (FP) PO SCH (22:41)
[2021-07-05] MEDS: MELATONIN 5 MG TABLETS PO SCH (22:42)
[2021-07-06] MEDS ORDERED: chlordiazePOXIDE HCL 10 MG CAPSULE PO ONE (05:00)
[2021-07-06] MEDS ORDERED: LORazepam 0.5 MG TABLET PO ONE (05:00)
[2021-07-06 09:11] VITALS: BP 140/78; PULSE 80; TEMP 96.9
== END 2021-07-06 08:50 | disposition home or self-care (01) | DRG 775 ==
LOC: YASAS 13:15 → Y6N 19:58
PROVIDERS: ADMIT Allergy & Immunology; ATTEND Allergy & Immunology
PROC: HZ2ZZZZ Detoxification Services for Substance Abuse Treatment (ICD-10-PCS; principal; 2021-07-01)
DX: F10.20 Alcohol dependence, uncomplicated (principal); F41.9 Anxiety disorder, unspecified; F60.9 Personality disorder, unspecified; F32.A Depression, unspecified; D64.9 Anemia, unspecified; I10 Essential (primary) hypertension; E78.5 Hyperlipidemia, unspecified; R74.01 Elevation of levels of liver transaminase levels; Z86.73 Personal history of transient ischemic attack (TIA), and cerebral infarction without residual deficits; Z86.59 Personal history of other mental and behavioral disorders; Z91.51 Personal history of suicidal behavior; Z91.018 Allergy to other foods
CPT/HCPCS: 36415; 80053; 85027; 86780; C9803; U0003; U0005

== ENCOUNTER 2022-10-10 10:34 | Inpatient (IN) | payer OTHER ==
[2022-10-10 11:00] VITALS: BMI 24.0
[2022-10-10] MEDS ORDERED: BISMUTH SUBSALICYLATE 524 MG/30 ML PO PRN (12:34)
[2022-10-10] MEDS ORDERED: ACETAMINOPHEN 325 MG TABLET (FP) PO PRN (12:34)
[2022-10-10] MEDS ORDERED: NALOXONE HCL 0.4 MG/ML VIAL IM PRN (12:34)
[2022-10-10] MEDS ORDERED: MAGNESIUM HYDROX 2400MG/30ML ORAL SUSPENSION 30 ML CUP PO PRN (12:34)
[2022-10-10] MEDS ORDERED: IBUPROFEN 400 MG TABLET (FP) PO PRN (12:34)
[2022-10-10] MEDS ORDERED: BENZONATATE 200 MG CAPSULE PO PRN (12:34)
[2022-10-10] MEDS ORDERED: NALOXONE HCL (KLOXXADO) 8 MG SPRAY NS PRN (12:34)
[2022-10-10] MEDS ORDERED: MAG HYDROX/AL HYDROX/SIMETH 30 ML UNIT-DOSE CUP PO PRN (12:34)
[2022-10-10] MEDS ORDERED: BENZOCAINE/MENTHOL (CHLORASEPTIC ) LOZENGE MM PRN (12:34)
[2022-10-10] MEDS ORDERED: guaiFENesin 600 MG TABLET.ER (FP) PO PRN (12:34)
[2022-10-10] MEDS ORDERED: IBUPROFEN 600 MG TABLET (FP) PO PRN (12:34)
[2022-10-10] MEDS ORDERED: ONDANSETRON *ODT* 4 MG TABLET SL PRN (12:34)
[2022-10-10] MEDS ORDERED: LORazepam 1 MG TABLET PO PRN (12:34)
[2022-10-10] MEDS ORDERED: LOPERAMIDE HCL 2 MG CAPSULE PO PRN (12:34)
[2022-10-10] MEDS ORDERED: POLYETHYLENE GLYCOL (HEALTHYLAX) 3350 17 GM PACKET PO PRN (12:34)
[2022-10-10] MEDS ORDERED: DICYCLOMINE HCL 10 MG CAPSULE PO PRN (12:34)
[2022-10-10] MEDS ORDERED: PRENATAL VITAMINS W/ FOLIC ACID TABLET (FP) PO ONE (14:42)
[2022-10-10] MEDS: PRENATAL VITAMINS W/ FOLIC ACID TABLET (FP) PO SCH (14:43)
[2022-10-10 15:20] LABS: HEMATOCRIT 37.7 % (35.4-49); HEMOGLOBIN 12.4 GM/dL (11.7-16.9); MCH 29.4 pg (25.7-33.7); MCHC 32.9 g/dl (32.0-35.9); MEAN CELL VOLUME 89.4 fl (80-96); MEAN PLT VOLUME 7.9 fl (7.5-11.1); PLATELET COUNT 250 10^3/uL (134-434); RBC 4.22 M/mm3 (4.00-5.60); RDW 14.1 % (11.9-15.9); WHITE BLOOD COUNT 2.9 K/mm3 (4.0-10.0)
[2022-10-10 15:33] LABS: POTASSIUM 4.4 mmol/L (3.5-5.1)
[2022-10-10 15:36] LABS: CALCIUM 8.7 mg/dL (8.5-10.1)
[2022-10-10 15:37] LABS: ALBUMIN 3.8 g/dl (3.4-5.0); BLOOD UREA NITROGEN 7.5 mg/dL (7-18)
[2022-10-10 15:41] LABS: BILIRUBIN,TOTAL 0.3 mg/dL (0.2-1); TOT PROT 8.3 g/dl (6.4-8.2)
[2022-10-10] MEDS: LORazepam 2 MG TABLET PO SCH ×2 (17:30→22:30)
[2022-10-10] MEDS: METHOCARBAMOL 500 MG TABLET PO PRN (22:31)
[2022-10-10] MEDS: THIAMINE HCL 100 MG TABLET (FP) PO SCH (22:31)
[2022-10-10] MEDS: MELATONIN 5 MG TABLETS PO SCH (22:31)
[2022-10-11] MEDS: LORazepam 2 MG TABLET PO SCH ×4 (06:05→22:10)
[2022-10-11] MEDS: PRENATAL VITAMINS W/ FOLIC ACID TABLET (FP) PO SCH (10:13)
[2022-10-11] MEDS: LACTULOSE 20 GM/30 ML UDC (FOR ORAL USE ONLY) PO SCH ×3 (13:05→22:10)
[2022-10-11] MEDS: MELATONIN 5 MG TABLETS PO SCH (22:10)
[2022-10-11] MEDS: THIAMINE HCL 100 MG TABLET (FP) PO SCH (22:10)
[2022-10-12] MEDS: LORazepam 1 MG TABLET PO SCH ×4 (05:55→22:05)
[2022-10-12] MEDS: LACTULOSE 20 GM/30 ML UDC (FOR ORAL USE ONLY) PO SCH ×4 (10:05→23:11)
[2022-10-12] MEDS: hydrOXYzine PAMOATE 25 MG CAPSULE (FP) PO PRN ×2 (10:06→22:05)
[2022-10-12] MEDS: METHOCARBAMOL 500 MG TABLET PO PRN (10:06)
[2022-10-12] MEDS: PRENATAL VITAMINS W/ FOLIC ACID TABLET (FP) PO SCH (10:06)
[2022-10-12] MEDS: THIAMINE HCL 100 MG TABLET (FP) PO SCH (22:05)
[2022-10-12] MEDS: MELATONIN 5 MG TABLETS PO SCH (22:05)
[2022-10-13] MEDS ORDERED: LORazepam 0.5 MG TABLET PO PRN
[2022-10-13] MEDS: LORazepam 0.5 MG TABLET PO SCH ×4 (05:55→22:10)
[2022-10-13] MEDS: PRENATAL VITAMINS W/ FOLIC ACID TABLET (FP) PO SCH (10:25)
[2022-10-13] MEDS: LACTULOSE 20 GM/30 ML UDC (FOR ORAL USE ONLY) PO SCH ×4 (10:28→22:10)
[2022-10-13] MEDS: METHOCARBAMOL 500 MG TABLET PO PRN (12:15)
[2022-10-13] MEDS: hydrOXYzine PAMOATE 25 MG CAPSULE (FP) PO PRN (12:15)
[2022-10-13] MEDS: THIAMINE HCL 100 MG TABLET (FP) PO SCH (22:10)
[2022-10-13] MEDS: MELATONIN 5 MG TABLETS PO SCH (22:10)
[2022-10-14] MEDS ORDERED: LORazepam 0.5 MG TABLET PO ONE (05:00)
[2022-10-14 09:42] VITALS: TEMP 97.3
[2022-10-14] MEDS: LACTULOSE 20 GM/30 ML UDC (FOR ORAL USE ONLY) PO SCH ×2 (10:29→13:06)
[2022-10-14] MEDS: PRENATAL VITAMINS W/ FOLIC ACID TABLET (FP) PO SCH (10:29)
[2022-10-14 13:04] VITALS: BP 113/66; PULSE 78; RESP 17
== END 2022-10-14 15:50 | disposition home or self-care (01) | DRG 775 ==
LOC: YASAS 10:34 → Y6N 12:45
PROVIDERS: ADMIT Allergy & Immunology; ATTEND Surgery
PROC: HZ2ZZZZ Detoxification Services for Substance Abuse Treatment (ICD-10-PCS; principal; 2022-10-10)
DX: F10.230 Alcohol dependence with withdrawal, uncomplicated (principal); F31.9 Bipolar disorder, unspecified; F10.282 Alcohol dependence with alcohol-induced sleep disorder; F10.24 Alcohol dependence with alcohol-induced mood disorder; F41.9 Anxiety disorder, unspecified; E78.5 Hyperlipidemia, unspecified; I10 Essential (primary) hypertension; J30.2 Other seasonal allergic rhinitis; R79.89 Other specified abnormal findings of blood chemistry; Z86.59 Personal history of other mental and behavioral disorders; Z86.73 Personal history of transient ischemic attack (TIA), and cerebral infarction without residual deficits; Z91.018 Allergy to other foods
CPT/HCPCS: 36415; 80053; 82140; 85027; 86780; 87635; 87811